=== PATIENT | female | born 1950 | race Caucasian/White ===

== ENCOUNTER 2021-06-20 09:45 | Inpatient (IN) ==
[2021-06-20] MEDS ORDERED: CeFAZolin Syr 2,000MG/20 ML 2,000 MG/20 ML SYRINGE IVPB ONE (10:28)
[2021-06-20] MEDS ORDERED: levoFLOXacin 500 MG/100 ML 500 MG/100 ML BAG IVPB ONE (10:28)
[2021-06-20] MEDS ORDERED: Ringers Solution, Lactated 1,000 ML IVC SCH ×2 (10:30→17:00)
[2021-06-20] MEDS ORDERED: Acetaminophen IV 1,000 MG/100 ML BAG IVPB ONE (10:36)
[2021-06-20] MEDS ORDERED: Famotidine 20 MG/2 ML VIAL IVP ONE (10:36)
[2021-06-20] MEDS ORDERED: Albuterol 2.5 MG/3 ML NEBULIZER IH PRN (10:43)
[2021-06-20] MEDS ORDERED: *HR* OxyCODONE Immed Rel 5 MG TABLET PO PRN ×2 (11:33→16:56)
[2021-06-20] MEDS ORDERED: Ondansetron 4 MG/2 ML VIAL IVP PRN ×3 (11:33→19:06)
[2021-06-20] MEDS ORDERED: Povidone-Iodine 45 ML, Sodium Chloride IRRigation 1,000 ML IR ONE (12:00)
[2021-06-20] MEDS ORDERED: TOTAL JOINT MIXTURE (100ML) INTRAART ONE (12:00)
[2021-06-20] MEDS ORDERED: Vancomycin 1,000 MG VIAL ONE (12:53)
[2021-06-20] MEDS ORDERED: *HR* FentaNYL (PF) 100 MCG/2 ML VIAL ONE (12:54)
[2021-06-20] MEDS ORDERED: Ondansetron 4 MG/2 ML VIAL ONE (12:54)
[2021-06-20] MEDS ORDERED: Lidocaine -MPF 4% 5 ML AMPUL ONE (12:54)
[2021-06-20] MEDS ORDERED: *HR* Midazolam HCl 2 MG/2 ML VIAL ONE (12:54)
[2021-06-20] MEDS ORDERED: Lidocaine -MPF 2% 5 ML VIAL ONE (12:54)
[2021-06-20] MEDS ORDERED: *HR* Rocuronium Bromide 50 MG/5 ML VIAL ONE (12:54)
[2021-06-20] MEDS ORDERED: *HR* Propofol 200 MG/20 ML VIAL IVP ONE (12:54)
[2021-06-20] MEDS ORDERED: Tranexamic Acid 1,000 MG/10 ML VIAL ONE ×2 (13:35→15:04)
[2021-06-20] MEDS ORDERED: *HR* HYDROMORPHONE 2 MG/ML VIAL ONE (14:55)
[2021-06-20] MEDS ORDERED: Sugammadex Sodium 200 MG/2 ML VIAL IV ONE (16:43)
[2021-06-20] MEDS ORDERED: Naloxone 0.4 MG/ML INJ IVP PRN ×2 (16:56→19:06)
[2021-06-20] MEDS ORDERED: *HR* Promethazine 25 MG/ML VIAL IM PRN ×2 (16:56→19:06)
[2021-06-20] MEDS ORDERED: Sennosides 8.6 MG TABLET PO PRN ×2 (16:56→19:06)
[2021-06-20] MEDS ORDERED: MOM Conc 10 ML UD.LIQ PO PRN ×2 (16:56→19:06)
[2021-06-20] MEDS ORDERED: hydrOXYzine pamoate 25 MG CAPSULE PO PRN (16:59)
[2021-06-20] MEDS ORDERED: Ascorbic Acid 500 MG TABLET PO SCH (17:00)
[2021-06-20] MEDS ORDERED: *HR* Labetalol 20 MG/4 ML SYRINGE IVP ONE (17:19)
[2021-06-20] MEDS ORDERED: *HR* Labetalol 20 MG/4 ML SYRINGE IVP PRN (17:21)
[2021-06-20] MEDS ORDERED: Ketorolac 30 MG/ML VIAL IVP SCH (18:00)
[2021-06-20] MEDS: *HR* HYDROmorphone PF 0.5 MG/0.5 ML SYRINGE IVP PRN ×2 (18:00→18:06)
[2021-06-20] MEDS: Ringers Solution, Lactated 1,000 ML IVC SCH (19:47)
[2021-06-20] MEDS ORDERED: CeFAZolin 2 GM/120 ML BAG IVPB SCH (22:00)
[2021-06-21] MEDS: CeFAZolin 2 GM/120 ML BAG IVPB SCH ×2 (00:04→07:49)
[2021-06-21] MEDS: Ketorolac 30 MG/ML VIAL IVP SCH ×5 (00:04→23:32)
[2021-06-21] MEDS: *HR* OxyCODONE Immed Rel 5 MG TABLET PO PRN ×3 (02:43→20:29)
[2021-06-21] MEDS: hydrOXYzine pamoate 25 MG CAPSULE PO PRN (03:54)
[2021-06-21 05:57] LABS: Basophils % 0.1 %; Hematocrit 30.2 % (35.3-44.9); Hemoglobin 9.9 g/dL (11.5-15.4); Immature Granulocytes % 0.3 % (0-4); Lymphocytes # 0.9 K/mcL (0.6-4.6); Lymphocytes % 7.5 %; Mean Corpuscular HGB Conc 32.8 g/dL (31.6-35.5); Mean Corpuscular Hemoglobin 32.2 pg (28.0-33.3); Mean Corpuscular Volume 98.4 fL (83.0-100.0); Mean Platelet Volume 9.6 fL (9.4-12.4); Monocytes # 1.2 K/mcL (0.0-1.3); Neutrophils # 9.5 K/mcL (1.6-8.9); Platelet Count 304 K/mcL (140-400); Red Blood Count 3.07 M/mcL (3.82-4.97); Red Cell Distribution Width 12.5 % (11.5-14.5); Segmented Neutrophils % 82.1 %; White Blood Count 11.6 K/mcL (4.3-11.1)
[2021-06-21 06:18] LABS: BUN/Creatinine Ratio 30 (6-26); Blood Urea Nitrogen 22 mg/dL (8-23); Calcium 8.9 mg/dL (8.6-10.3); Carbon Dioxide 25 mEq/L (23-29); Chloride 103 mEq/L (98-107); Glucose 122 mg/dL (70-105); Osmolality,Calculated 285 (280-300); Potassium 4.3 mEq/L (3.5-5.1); Sodium 135 mEq/L (136-145); eGFR For African Americans > 60 (> 60); eGFR For Non-African Americans > 60 (> 60)
[2021-06-21] MEDS: Multivit/Ca/Min/Fe/FA 1 TAB TABLET PO SCH (07:50)
[2021-06-21] MEDS: PARoxetine 20 MG TABLET PO SCH (07:50)
[2021-06-21] MEDS: Ascorbic Acid 500 MG TABLET PO SCH ×2 (07:50→16:55)
[2021-06-21] MEDS ORDERED: PARoxetine 20 MG TABLET PO SCH (09:00)
[2021-06-21] MEDS ORDERED: Multivit/Ca/Min/Fe/FA 1 TAB TABLET PO SCH (09:00)
[2021-06-21] MEDS ORDERED: Aspirin Enteric Coated 81 MG Tablet PO SCH (16:58)
[2021-06-21] MEDS: Aspirin Enteric Coated 81 MG Tablet PO SCH ×2 (16:58→20:29)
[2021-06-22] MEDS: *HR* OxyCODONE Immed Rel 5 MG TABLET PO PRN ×4 (00:47→20:59)
[2021-06-22 05:02] LABS: Basophils % 0.3 %; Eosinophils % 0.4 %; Hematocrit 27.6 % (35.3-44.9); Hemoglobin 8.9 g/dL (11.5-15.4); Immature Granulocytes % 0.4 % (0-4); Lymphocytes # 1.3 K/mcL (0.6-4.6); Lymphocytes % 17.9 %; Mean Corpuscular HGB Conc 32.2 g/dL (31.6-35.5); Mean Corpuscular Hemoglobin 32.5 pg (28.0-33.3); Mean Corpuscular Volume 100.7 fL (83.0-100.0); Mean Platelet Volume 9.9 fL (9.4-12.4); Monocytes # 0.8 K/mcL (0.0-1.3); Monocytes % 10.3 %; Neutrophils # 5.3 K/mcL (1.6-8.9); Platelet Count 242 K/mcL (140-400); Red Blood Count 2.74 M/mcL (3.82-4.97); Red Cell Distribution Width 12.7 % (11.5-14.5); Segmented Neutrophils % 70.7 %; White Blood Count 7.5 K/mcL (4.3-11.1)
[2021-06-22 05:23] LABS: BUN/Creatinine Ratio 38 (6-26); Blood Urea Nitrogen 28 mg/dL (8-23); Calcium 8.6 mg/dL (8.6-10.3); Carbon Dioxide 27 mEq/L (23-29); Chloride 107 mEq/L (98-107); Glucose 120 mg/dL (70-105); Osmolality,Calculated 293 (280-300); Sodium 138 mEq/L (136-145); eGFR For African Americans > 60 (> 60); eGFR For Non-African Americans > 60 (> 60)
[2021-06-22] MEDS: Ketorolac 30 MG/ML VIAL IVP SCH ×4 (06:39→23:54)
[2021-06-22] MEDS: Multivit/Ca/Min/Fe/FA 1 TAB TABLET PO SCH (09:47)
[2021-06-22] MEDS: Aspirin Enteric Coated 81 MG Tablet PO SCH ×2 (09:48→20:58)
[2021-06-22] MEDS: PARoxetine 20 MG TABLET PO SCH (09:48)
[2021-06-22] MEDS: Ascorbic Acid 500 MG TABLET PO SCH ×2 (09:48→16:50)
[2021-06-22] MEDS ORDERED: NON-FORMULARY MEDICATION 1 EACH EACH (Omeprazole [Prilosec] 40 MG Capsule.Dr) PO SCH (12:00)
[2021-06-22] MEDS: *HR* Rivaroxaban 10 MG TABLET PO SCH (16:50)
[2021-06-22] MEDS: hydrOXYzine pamoate 25 MG CAPSULE PO PRN (20:58)
[2021-06-22] MEDS: Gabapentin 100 MG CAPSULE PO SCH (20:58)
[2021-06-23] MEDS: Ketorolac 30 MG/ML VIAL IVP SCH ×3 (05:27→18:06)
[2021-06-23] MEDS: *HR* OxyCODONE Immed Rel 5 MG TABLET PO PRN ×3 (08:06→16:19)
[2021-06-23] MEDS: Ascorbic Acid 500 MG TABLET PO SCH ×2 (08:06→17:07)
[2021-06-23] MEDS: PARoxetine 20 MG TABLET PO SCH (08:06)
[2021-06-23] MEDS: Aspirin Enteric Coated 81 MG Tablet PO SCH ×2 (08:07→20:23)
[2021-06-23] MEDS: Multivit/Ca/Min/Fe/FA 1 TAB TABLET PO SCH (08:07)
[2021-06-23] MEDS: Gabapentin 100 MG CAPSULE PO SCH ×2 (08:07→20:23)
[2021-06-23] MEDS: CeFAZolin 2,000 MG/120 ML BAG IVPB SCH ×2 (12:26→20:23)
[2021-06-23] MEDS: hydrOXYzine pamoate 25 MG CAPSULE PO PRN (17:07)
[2021-06-23] MEDS: *HR* Rivaroxaban 10 MG TABLET PO SCH (17:07)
[2021-06-23] MEDS: Ringers Solution, Lactated 1,000 ML IVC SCH (20:32)
[2021-06-24] MEDS: hydrOXYzine pamoate 25 MG CAPSULE PO PRN (01:42)
[2021-06-24] MEDS: Ketorolac 30 MG/ML VIAL IVP SCH ×4 (01:43→18:50)
[2021-06-24] MEDS: Ascorbic Acid 500 MG TABLET PO SCH ×2 (06:42→15:28)
[2021-06-24] MEDS: *HR* OxyCODONE Immed Rel 5 MG TABLET PO PRN ×3 (06:48→21:16)
[2021-06-24] MEDS: CeFAZolin 2,000 MG/120 ML BAG IVPB SCH ×3 (07:20→21:16)
[2021-06-24] MEDS: Aspirin Enteric Coated 81 MG Tablet PO SCH ×2 (07:21→21:16)
[2021-06-24] MEDS: Gabapentin 100 MG CAPSULE PO SCH ×2 (07:21→21:16)
[2021-06-24] MEDS: PARoxetine 20 MG TABLET PO SCH (07:21)
[2021-06-24] MEDS: Multivit/Ca/Min/Fe/FA 1 TAB TABLET PO SCH (07:21)
[2021-06-24] MEDS: *HR* Rivaroxaban 10 MG TABLET PO SCH (15:28)
[2021-06-24] MEDS: Ringers Solution, Lactated 1,000 ML IVC SCH (15:29)
[2021-06-25] MEDS: Ketorolac 30 MG/ML VIAL IVP SCH ×3 (00:35→11:53)
[2021-06-25] MEDS: CeFAZolin 2,000 MG/120 ML BAG IVPB SCH ×2 (05:37→11:54)
[2021-06-25] MEDS: *HR* OxyCODONE Immed Rel 5 MG TABLET PO PRN (05:45)
[2021-06-25 07:29] VITALS: O2SAT 94
[2021-06-25] MEDS: Aspirin Enteric Coated 81 MG Tablet PO SCH (08:54)
[2021-06-25] MEDS: Gabapentin 100 MG CAPSULE PO SCH (08:54)
[2021-06-25] MEDS: Multivit/Ca/Min/Fe/FA 1 TAB TABLET PO SCH (08:54)
[2021-06-25] MEDS: Ascorbic Acid 500 MG TABLET PO SCH (08:55)
[2021-06-25] MEDS: PARoxetine 20 MG TABLET PO SCH (08:55)
[2021-06-25 10:49] LABS: Adenovirus Not Detected (Not Detect); Bordetella Pertussis Not Detected (Not Detect); Chlamydophila pneumoniae Not Detected (Not Detect); Coronavirus 229E Not Detected (Not Detect); Coronavirus HKU1 Not Detected (Not Detect); Coronavirus NL63 Not Detected (Not Detect); Coronavirus OC43 Not Detected (Not Detect); Human Metapneumovirus Not Detected (Not Detect); Human Rhinovirus/Enterovirus Not Detected (Not Detect); Influenza A Subtype 2009 H1 Not Detected (Not Detect); Influenza B Not Detected (Not Detect); Mycoplasma pneumoniae Not Detected (Not Detect); Parainfluenza Virus 1 Not Detected (Not Detect); Parainfluenza Virus 2 Not Detected (Not Detect); Parainfluenza Virus 3 Not Detected (Not Detect); Parainfluenza Virus 4 Not Detected (Not Detect); Respiratory Syncytial Virus Not Detected (Not Detect); SARS-CoV-2 Not Detected (Not Detect)
[2021-06-25 11:32] VITALS: BP 128/74; PULSE 90; TEMP 97.9
== END 2021-06-25 15:06 | DRG 470 ==
LOC: SDCAOSI 09:45 → 4WAOSI 18:53
PROVIDERS: ADMIT Orthopaedic Surgery; ATTEND Orthopaedic Surgery

== ENCOUNTER 2022-04-29 05:55 | Inpatient (IN) ==
[2022-04-29] MEDS ORDERED: CeFAZolin Syr 2,000MG/20 ML 2,000 MG/20 ML SYRINGE IVPB ONE (06:21)
[2022-04-29] MEDS ORDERED: Ringers Solution, Lactated 1,000 ML IVC SCH ×2 (06:30→10:57)
[2022-04-29] MEDS ORDERED: *HR* OxyCODONE Immed Rel 5 MG TABLET PO PRN (06:39)
[2022-04-29] MEDS ORDERED: Albuterol 2.5 MG/3 ML NEBULIZER IH ONE (06:39)
[2022-04-29] MEDS ORDERED: *HR* HYDROmorphone PF 0.5 MG/0.5 ML SYRINGE IVP PRN (06:39)
[2022-04-29] MEDS ORDERED: *HR* FentaNYL (PF) 100 MCG/2 ML VIAL IVP PRN (06:39)
[2022-04-29] MEDS ORDERED: Ondansetron 4 MG/2 ML VIAL IVP PRN ×2 (06:39→10:57)
[2022-04-29] MEDS ORDERED: *HR* FentaNYL (PF) 100 MCG/2 ML VIAL ONE ×2 (06:44→08:03)
[2022-04-29] MEDS ORDERED: *HR* Propofol 200 MG/20 ML VIAL IVP ONE (06:44)
[2022-04-29] MEDS ORDERED: Ondansetron 4 MG/2 ML VIAL ONE (06:45)
[2022-04-29] MEDS ORDERED: Lidocaine -MPF 2% 2 ML VIAL ONE (06:45)
[2022-04-29] MEDS ORDERED: *HR* Succinylcholine 200 MG/10 ML VIAL IVP ONE (06:45)
[2022-04-29] MEDS ORDERED: Vancomycin 1,000 MG VIAL ONE (06:46)
[2022-04-29] MEDS ORDERED: Tranexamic Acid 1,000 MG/10 ML VIAL ONE (06:46)
[2022-04-29] MEDS ORDERED: Gentamicin 280 MG in 0.9 % Sodium Chloride 100 ML IVPB ONE ×2 (07:00→22:00)
[2022-04-29] MEDS ORDERED: Metoprolol XL (24 HR) Succ 50 MG TAB.ER.24H PO ONE (07:15)
[2022-04-29] MEDS ORDERED: TOTAL JOINT MIXTURE (100ML) INTRAART ONE (07:30)
[2022-04-29] MEDS ORDERED: Povidone-Iodine 45 ML, Sodium Chloride IRRigation 1,000 ML IR ONE (07:30)
[2022-04-29] MEDS ORDERED: Acetaminophen IV 1,000 MG/100 ML BAG IVPB ONE ×2 (08:10→08:13)
[2022-04-29] MEDS ORDERED: *HR* Magnesium Sulfate 1 GM/2 ML VIAL ONE (08:12)
[2022-04-29] MEDS ORDERED: *HR* HYDROMORPHONE 2 MG/ML VIAL ONE (08:45)
[2022-04-29] MEDS ORDERED: *HR* Promethazine 25 MG/ML VIAL IM PRN (10:57)
[2022-04-29] MEDS ORDERED: Sennosides 8.6 MG TABLET PO PRN (10:57)
[2022-04-29] MEDS ORDERED: MOM Conc 10 ML UD.LIQ PO PRN (10:57)
[2022-04-29] MEDS ORDERED: Naloxone 0.4 MG/ML INJ IVP PRN (10:57)
[2022-04-29] MEDS: Ketorolac 30 MG/ML VIAL IVP SCH ×2 (12:57→19:17)
[2022-04-29] MEDS: *HR* OxyCODONE Immed Rel 5 MG TABLET PO PRN ×2 (14:49→20:45)
[2022-04-29] MEDS: Ascorbic Acid 500 MG TABLET PO SCH (16:34)
[2022-04-29] MEDS: *HR* Rivaroxaban 10 MG TABLET PO SCH (16:34)
[2022-04-29] MEDS: CeFAZolin 2 GM/120 ML BAG IVPB SCH (16:34)
[2022-04-29] MEDS: Gabapentin 100 MG CAPSULE PO SCH (20:45)
[2022-04-30] MEDS: CeFAZolin 2 GM/120 ML BAG IVPB SCH ×3 (01:44→17:11)
[2022-04-30] MEDS: Ketorolac 30 MG/ML VIAL IVP SCH ×4 (01:44→18:19)
[2022-04-30 05:13] LABS: Basophils % 0.1 %; Hematocrit 25.6 % (35.3-44.9); Hemoglobin 8.3 g/dL (11.5-15.4); Immature Granulocytes % 0.2 % (0-4); Lymphocytes # 1.1 K/mcL (0.6-4.6); Lymphocytes % 12.2 %; Mean Corpuscular HGB Conc 32.4 g/dL (31.6-35.5); Mean Corpuscular Hemoglobin 30.1 pg (28.0-33.3); Mean Corpuscular Volume 92.8 fL (83.0-100.0); Mean Platelet Volume 10.7 fL (9.4-12.4); Monocytes % 11.2 %; Neutrophils # 6.9 K/mcL (1.6-8.9); Platelet Count 315 K/mcL (140-400); Red Blood Count 2.76 M/mcL (3.82-4.97); Red Cell Distribution Width 14.3 % (11.5-14.5); Segmented Neutrophils % 76.3 %; White Blood Count 9.1 K/mcL (4.3-11.1)
[2022-04-30 05:32] LABS: Calcium 8.3 mg/dL (8.6-10.3); Potassium 4.5 mEq/L (3.5-5.1)
[2022-04-30] MEDS: *HR* OxyCODONE Immed Rel 5 MG TABLET PO PRN ×3 (08:05→22:57)
[2022-04-30] MEDS: Ascorbic Acid 500 MG TABLET PO SCH ×2 (08:06→18:20)
[2022-04-30] MEDS: Multivit/Ca/Min/Fe/FA 1 TAB TABLET PO SCH (08:06)
[2022-04-30] MEDS: PARoxetine 20 MG TABLET PO SCH (08:06)
[2022-04-30] MEDS: Gabapentin 100 MG CAPSULE PO SCH ×2 (08:06→19:47)
[2022-04-30] MEDS: *HR* Rivaroxaban 10 MG TABLET PO SCH (18:20)
[2022-04-30] MEDS: hydrOXYzine pamoate 25 MG CAPSULE PO PRN (22:57)
[2022-05-01] MEDS: Ketorolac 30 MG/ML VIAL IVP SCH ×4 (00:15→16:46)
[2022-05-01] MEDS: CeFAZolin 2 GM/120 ML BAG IVPB SCH ×3 (00:16→16:43)
[2022-05-01] MEDS: hydrOXYzine pamoate 25 MG CAPSULE PO PRN ×2 (05:00→20:31)
[2022-05-01 06:26] LABS: Basophils % 0.1 %; Eosinophils % 0.2 %; Hematocrit 24.6 % (35.3-44.9); Immature Granulocytes % 0.5 % (0-4); Lymphocytes # 1.6 K/mcL (0.6-4.6); Lymphocytes % 15.5 %; Mean Corpuscular HGB Conc 32.5 g/dL (31.6-35.5); Mean Corpuscular Hemoglobin 30.1 pg (28.0-33.3); Mean Corpuscular Volume 92.5 fL (83.0-100.0); Mean Platelet Volume 10.2 fL (9.4-12.4); Monocytes % 10.1 %; Neutrophils # 7.6 K/mcL (1.6-8.9); Platelet Count 306 K/mcL (140-400); Red Blood Count 2.66 M/mcL (3.82-4.97); Red Cell Distribution Width 14.3 % (11.5-14.5); Segmented Neutrophils % 73.6 %; White Blood Count 10.3 K/mcL (4.3-11.1)
[2022-05-01 06:43] LABS: BUN/Creatinine Ratio 25 (6-26); Blood Urea Nitrogen 15 mg/dL (8-23); Calcium 8.6 mg/dL (8.6-10.3); Carbon Dioxide 24 mEq/L (23-29); Chloride 105 mEq/L (98-107); Glucose 115 mg/dL (70-105); Osmolality,Calculated 286 (280-300); Potassium 3.8 mEq/L (3.5-5.1); Sodium 137 mEq/L (136-145)
[2022-05-01] MEDS: Multivit/Ca/Min/Fe/FA 1 TAB TABLET PO SCH (08:46)
[2022-05-01] MEDS: Gabapentin 100 MG CAPSULE PO SCH ×2 (08:46→20:31)
[2022-05-01] MEDS: Ascorbic Acid 500 MG TABLET PO SCH ×2 (08:46→16:46)
[2022-05-01] MEDS: *HR* OxyCODONE Immed Rel 5 MG TABLET PO PRN ×2 (08:47→23:09)
[2022-05-01] MEDS: PARoxetine 20 MG TABLET PO SCH (08:47)
[2022-05-01] MEDS: *HR* Rivaroxaban 10 MG TABLET PO SCH (16:46)
[2022-05-02] MEDS: CeFAZolin 2 GM/120 ML BAG IVPB SCH ×3 (00:24→17:17)
[2022-05-02] MEDS: Multivit/Ca/Min/Fe/FA 1 TAB TABLET PO SCH (08:05)
[2022-05-02] MEDS: Gabapentin 100 MG CAPSULE PO SCH ×2 (08:05→22:39)
[2022-05-02] MEDS: Ascorbic Acid 500 MG TABLET PO SCH ×2 (08:06→17:17)
[2022-05-02] MEDS: PARoxetine 20 MG TABLET PO SCH (08:06)
[2022-05-02] MEDS: Ketorolac 30 MG/ML VIAL IVP SCH ×4 (08:06→17:18)
[2022-05-02] MEDS: *HR* Rivaroxaban 10 MG TABLET PO SCH (17:17)
[2022-05-02] MEDS: *HR* OxyCODONE Immed Rel 5 MG TABLET PO PRN (22:39)
[2022-05-03] MEDS: Ketorolac 30 MG/ML VIAL IVP SCH ×2 (00:25→05:16)
[2022-05-03] MEDS: CeFAZolin 2 GM/120 ML BAG IVPB SCH ×2 (00:27→08:46)
[2022-05-03] MEDS: *HR* OxyCODONE Immed Rel 5 MG TABLET PO PRN ×2 (02:45→08:46)
[2022-05-03] MEDS: Ascorbic Acid 500 MG TABLET PO SCH (08:46)
[2022-05-03] MEDS: Gabapentin 100 MG CAPSULE PO SCH (08:46)
[2022-05-03] MEDS: Multivit/Ca/Min/Fe/FA 1 TAB TABLET PO SCH (08:47)
[2022-05-03] MEDS: PARoxetine 20 MG TABLET PO SCH (08:47)
[2022-05-03 10:04] VITALS: PULSE 76; TEMP 97.6; O2SAT 95
[2022-05-03 10:38] LABS: Adenovirus Not Detected (Not Detect); Bordetella Pertussis Not Detected (Not Detect); Chlamydophila pneumoniae Not Detected (Not Detect); Coronavirus 229E Not Detected (Not Detect); Coronavirus HKU1 Not Detected (Not Detect); Coronavirus NL63 Not Detected (Not Detect); Coronavirus OC43 Not Detected (Not Detect); Human Metapneumovirus Not Detected (Not Detect); Human Rhinovirus/Enterovirus Not Detected (Not Detect); Influenza A Subtype 2009 H1 Not Detected (Not Detect); Influenza B Not Detected (Not Detect); Mycoplasma pneumoniae Not Detected (Not Detect); Parainfluenza Virus 1 Not Detected (Not Detect); Parainfluenza Virus 2 Not Detected (Not Detect); Parainfluenza Virus 3 Not Detected (Not Detect); Parainfluenza Virus 4 Not Detected (Not Detect); Respiratory Syncytial Virus Not Detected (Not Detect); SARS-CoV-2 Not Detected (Not Detect)
[2022-05-03 12:38] VITALS: BP 131/82
== END 2022-05-03 13:08 | DRG 470 ==
LOC: SDCAOSI 05:55 → 4WAOSI 11:08
PROVIDERS: ADMIT Orthopaedic Surgery; ATTEND Orthopaedic Surgery